=== PATIENT | female | born 1985 | race Caucasian/White ===

== ENCOUNTER → 2019-10-13 14:45 | Outpatient (CLI) | payer BC, SELFPAY ==
--- NOTE | ~2019-10-13 | US_ITS ---
EXAMINATION: US OB /maternal detail DATE: 10/13/2019 15:20 INDICATION: survey TECHNIQUE: Multiple obstetric sonographic images performed. FINDINGS: No prior studies for comparison. There is a single living fetus in breech presentation. The placenta is posterior without placenta pr evia measuring 2.4 cm to the cervix. Amniotic fluid volume is normal. cardiac activity and movement is noted with a heart rate of 138 beats per minute. The following anatomy was identified as normal: 4 chamber heart 3 vessel cord cord insertion kidneys urinary bladder stomach spine diaphragm ventricles cisterna magna cerebellum The following biometric data were obtained: BPD: 48mm corresponds to gestational age 20 weeks 4 days. Head circumference: 183 mm corresponds to gestational age 20 weeks 4 days. Abdominal circumference: 156 mm corresponds to gestational age 20 weeks 5 days. Femur length: 34 mm corresponds to gestational age 20 weeks 5 days. Head circumference to abdominal circumference ratio: 1.17 (normal range for expected gestational age is 1.06-1.25). Estimated weight: 372 grams +/- 56 grams using Hadlock method. IMPRESSION: 1: Single living intrauterine with an estimated gestational age of 20weeks 5days by current ultrasound measurements, with an EDC of 02/25/2020 in breech presentation. 2. Normal survey. Reviewed, dictated and finalized at location B. IMPRESSION: 1: Single living intrauterine with an estimated gestational age of 20 weeks 5days by current ultrasound measurements, with an EDC of 02/25/2020 in br eech presentation. 2. Normal survey.
== END ==
PROVIDERS: Visit Provider Obstetrics & Gynecology Gynecology
DX: Z36.9 Encounter for antenatal screening, unspecified (principal); Z3A.00 Weeks of gestation of pregnancy not specified
CPT/HCPCS: 76805

== ENCOUNTER 2020-01-25 17:43 | Outpatient (CLI) | payer BC, SELFPAY ==
[2020-01-25] VITALS (7 sets, daily range): BP systolic 112–124; BP diastolic 67–85; PULSE 68–88
[2020-01-25 18:46] LABS: Basophils Percent Auto 0.3 % (0.2-1.2); Eosinophils Absolute Auto 0.1 K/mm3 (0-0.3); Eosinophils Percent Auto 1.1 % (0-4.4); Hematocrit 34.9 % (37.0-47.0); Hemoglobin 12.1 g/dL (12.0-15.0); Immature Granulocyte Absolute 0.05 K/mm3 (0.00-0.031); Immature Granulocyte Percent A 0.5 % (0-0.5); Lymphocytes Absolute Auto 1.77 K/mm3 (0.9-3.2); Lymphocytes Percent Auto 16.3 % (18.3-44.2); Mean Corpuscular HGB Conc 34.7 g/dl (32-36); Mean Corpuscular Hemoglobin 29.8 pg (26-34); Mean Platelet Volume 9.8 fl (7.4-10.4); Monocytes Absolute Auto 0.9 K/mm3 (0.1-0.6); Monocytes Percent Auto 8.2 % (2.6-8.5); Neutrophils Percent Auto 73.6 % (45.5-73.1); Platelet Count Result 256 k/mm3 (150-375); Red Blood Count 4.06 M/mm3 (4.2-5.4); Red Cell Distribution Width 13.5 % (11.5-14.5); White Blood Count 10.9 K/mm3 (4.5-10.0)
[2020-01-25 18:51] LABS: Add Urine Microscopic? YES; Appearance Urine Clear (Clear); Bacteria Urine Trace /hpf; Bilirubin Urine Negative (Negative); Blood Urine Negative (Negative); Color Urine Colorless (Yellow); Glucose Urine UA Negative (Negative); Ketones Urine Negative (Negative); Leukocyte Esterase Ur 1+ LEU/UL (NEGATIVE); Nitrate Urine Negative (Negative); Protein Urine Negative (Negative); RBC Urine 0-2 /hpf (0-2); Squamous Epithelial Cell Urine Few /hpf (Few); Urobilinogen Urine Negative mg/dL (<2.0); WBC Urine 0-3 /hpf (0-3)
[2020-01-25 18:55] LABS: Creatinine Urine 12.1 mg/dL; Specific Grav Ur 1.003 (1.001-1.035); Total Protein Urine Random 13 mg/dL
[2020-01-25 19:01] LABS: Alanine Aminotransferase 12 U/L (4-35); Albumin Level 3.5 g/dL (3.5-5.1); Alkaline Phosphatase 135 U/L (38-126); Anion Gap 8 mmol/L (8-16); Aspartate Amino Transferase 18 U/L (14-36); Bilirubin,Total 0.4 mg/dL (0.2-1.3); Blood Urea Nitrogen 4 mg/dL (7-17); Calcium 9.1 mg/dL (8.4-10.2); Carbon Dioxide 25 mmol/L (22-30); Chloride 104 mmol/L (98-107); Estimated Glomerular Filt Rate > 60; Glucose 96 mg/dL (65-105); Potassium 3.6 mmol/L (3.4-5.0); Sodium 137 mmol/L (137-145); Uric Acid 3.6 mg/dL (2.5-7.5)
[2020-01-25] MEDS: TERBUTALINE SULFATE 1 MG/ML VIAL 0.25 MG SUB-Q (19:18)
== END 2020-01-25 20:30 | disposition home or self-care (01) ==
LOC: ANHOBOP 17:48 → ANHOBPP 17:49
PROVIDERS: Visit Provider Obstetrics & Gynecology Gynecology
DX: O13.9 Gestational [pregnancy-induced] hypertension without significant proteinuria, unspecified trimester (principal); Z3A.00 Weeks of gestation of pregnancy not specified
CPT/HCPCS: 36415; 80053; 81001; 82570; 84156; 84550; 85025; 87077; 87086; 87088; 99199; J3105

== ENCOUNTER 2020-02-17 15:35 | Inpatient (IN) | payer BC, SELFPAY ==
[2020-02-17] VITALS (57 sets, daily range): BP systolic 79–118; BP diastolic 54–98; PULSE 42–107; TEMP 36.6–36.9; O2SAT 83–100; BMI 32.3
[2020-02-17] MEDS: LACTATED RINGERS 1,000 ML 125 ML IV CONT (19:26)
[2020-02-17] MEDS: AMPICILLIN 2 GM/NS 100 ML 2 GM/100 ML BAG IVPB (19:27)
[2020-02-17 19:51] LABS: Basophils Percent Auto 0.3 % (0.2-1.2); Eosinophils Absolute Auto 0.1 K/mm3 (0-0.3); Eosinophils Percent Auto 1.1 % (0-4.4); Hematocrit 35.9 % (37.0-47.0); Hemoglobin 12.7 g/dL (12.0-15.0); Immature Granulocyte Absolute 0.07 K/mm3 (0.00-0.031); Immature Granulocyte Percent A 0.5 % (0-0.5); Lymphocytes Absolute Auto 1.92 K/mm3 (0.9-3.2); Lymphocytes Percent Auto 14.5 % (18.3-44.2); Mean Corpuscular HGB Conc 35.4 g/dl (32-36); Mean Corpuscular Hemoglobin 29.7 pg (26-34); Mean Corpuscular Volume 83.9 fl (80-100); Mean Platelet Volume 9.9 fl (7.4-10.4); Monocytes Absolute Auto 1.1 K/mm3 (0.1-0.6); Monocytes Percent Auto 8.3 % (2.6-8.5); Neutrophils Percent Auto 75.3 % (45.5-73.1); Platelet Count Result 296 k/mm3 (150-375); Red Blood Count 4.28 M/mm3 (4.2-5.4); Red Cell Distribution Width 13.4 % (11.5-14.5); White Blood Count 13.3 K/mm3 (4.5-10.0)
--- NOTE | 2020-02-17 20:33 | P.PNAN_ITS ---
Anes - Eval Pre Procedure Procedure: Labor epidural Date/Time: 02/17/20 20:33 Surgeon: Eleonora Preop Diagnosis: pain during labor Pre Op Diagnosis: Contractions Patient Data Age: 34 Gender: F Height: Weight: Last Vital Signs Pulse 82 02/17/20 20:20 BP 110/54 L 02/17/20 20:20 Pulse Ox 84 L 02/17/20 20:32 Allergies Allergy/AdvReac Type Severity Reaction Status Date / Time No Known Allergies Allergy Unknown Verified 01/30/20 12:34 Home Medications Medication Instructions Recorded Confirmed Type aspirin [Aspirin Low Dose] 81 mg PO DAILY 01/30/20 01/30/20 History ergocalciferol (vitamin D2) 1,250 mcg PO WEEKLY 01/30/20 01/30/20 History [Vitamin D2] ferrous sulfate 325 mg PO BID 01/30/20 01/30/20 History prenat.vits,james,[id number] 1 tablet PO DAILY 01/30/20 01/30/20 History [ #2] Laboratory Tests 02/17/20 02/17/20 19:27 19:27 WBC 13.3 K/mm3 H K/mm3 (4.5-10.0) RBC 4.28 M/mm3 M/mm3 (4.2-5.4) Hgb 12.7 g/dL g/dL (12.0-15.0) Hct 35.9 % L % (37.0-47.0) MCV 83.9 fl fl (80-100) MCH 29.7 pg pg (26-34) MCHC 35.4 g/dl g/dl (32-36) RDW 13.4 % % (11.5-14.5) Plt Count 296 k/mm3 k/mm3 (150-375) MPV 9.9 fl fl (7.4-10.4) Immature Gran % (Auto) 0.5 % % (0-0.5) Neut % (Auto) 75.3 % H % (45.5-73.1) Lymph % (Auto) 14.5 % L % (18.3-44.2) [place] % (Auto) 8.3 % % (2.6-8.5) Eos % (Auto) 1.1 % % (0-4.4) Baso % (Auto) 0.3 % % (0.2-1.2) Lymph # (Auto) 1.92 K/mm3 K/mm3 (0.9-3.2) [place] # (Auto) 1.1 K/mm3 H K/mm3 (0.1-0.6) Eos # (Auto) 0.1 K/mm3 K/mm3 (0-0.3) Baso # (Auto) 0.0 K/mm3 K/mm3 (0.0-0.1) Abs Immat Gran (auto) 0.07 K/mm3 H K/mm3 (0.00-0.031) Absolute Neuts (auto) 10.0 K/mm3 H K/mm3 (1.3-6.7) Absolute Nucleated RBC 0.0 K/mm3 K/mm3 (0.0-0.012) Nucleated RBC % 0.0 % % (0.0-0.2) RPR Pending Patient hx anesthesia problems: none Family hx anesthesia problems: none PMFSH Family History Family History (Updated 01/30/20 @ 12:39 by Gabby Ho RN) Mother Cancer Bipolar 1 disorder Father Prostate carcinoma Sibling Melanoma Psoriasis Social History Social History Substance use: never Spiritual care concerns: No Exam Day of Procedure 02/17/20 20:33
--- NOTE | 2020-02-17 20:59 | WPDOBADMIT ---
Obstetrics - Admit Note Admission Note: AROM meconium /-2 vertex. record reviewed. No pertinent additions to the history and/or any subsequent changes in the physical findings that are not consistent with the expected course of the were found. Additions to the history and/or subsequent changes in the physical findings follow. None.
--- NOTE | 2020-02-17 21:24 | LDADM ---
This patient, Georgette Robbins, was admitted to Labor/Delivery/Recovery 106 on 02/17/20 at 15:35. Plans for labor, pain management and were discussed with patient. Patient/family oriented to hospital policies and general routines including ID bracelet, bed and alarms, visiting hours, pain management, procedures, bathroom and other care routines, personal items, smoking policy, room service/diet and guest tray routines, security routines, and visiting hours. Patient/Family are encouraged to report perceived risks to care and to ask questions if they do not understand what they are told or what they should do. See OBIX for further documentation.
--- NOTE | 2020-02-17 23:05 | PM.OBPRVD ---
OB - Delivery Note Procedure Delivery date: 02/17/20 Procedure: Induction method: none Delivery augmentation: rupture of membranes Delivery monitor: external FHT and external uterine Route of delivery: Laceration Description: Perineal - 1st Degree Delivery repair: vicryl Specimen: Yes Estimated blood loss (mL): 100 Anesthesia type: Epidural Disposition: floor Baby Date of : 02/17/20 Time of : 20:18 Weeks of gestation at delivery: 38 gender: Male Weight (pounds): 7 Weight (ounces): 14 presentation: vertex position: Right Occiput Anterior Placenta delivery description: Spontaneous cord vessel description: 3 Vessels, Nuchal Cord, Loose and Clamped/Cut score one minute: 8 score five minutes: 9
[2020-02-17] MEDS: OXYTOCIN 30 UNITS/NS 500 ML 30 UNITS/500 ML BAG 125 UNITS IV CONT (23:26)
[2020-02-18] VITALS (11 sets, daily range): BP systolic 72–120; BP diastolic 49–78; PULSE 67–90; RESP 18; TEMP 36.4–37.4; O2SAT 99
[2020-02-18] MEDS: WITCH HAZEL 40 PADS 1 PAD TOPICAL (01:13)
[2020-02-18] MEDS: BENZOCAINE 20% AER SPR (*SP) 56 GM CAN 1 SPRAY TOPICAL (01:13)
--- NOTE | 2020-02-18 01:44 | OBPPTRN ---
Patient transferred to post room #281 via wheelchair with baby in bassinet. Support person present. Oriented to unit, room, information board, rooming in, admission packet and security measures. Patient verbalizes understanding.
[2020-02-18 05:02] LABS: Hematocrit 31.9 % (37.0-47.0); Hemoglobin 11.2 g/dL (12.0-15.0)
[2020-02-18] MEDS: MULTIVIT/MIN/PREN/FOL AC/IRON TABLET 1 TAB PO (07:15)
[2020-02-18] MEDS: IBUPROFEN 600 MG TABLET PO ×2 (07:15→15:11)
[2020-02-18] MEDS: DOCUSATE SODIUM 100 MG CAPSULE PO ×2 (07:15→15:11)
[2020-02-19] MEDS: MULTIVIT/MIN/PREN/FOL AC/IRON TABLET 1 TAB PO (08:21)
[2020-02-19] MEDS: DOCUSATE SODIUM 100 MG CAPSULE PO (08:21)
[2020-02-19] MEDS: IBUPROFEN 600 MG TABLET PO ×2 (08:21→16:58)
--- NOTE | 2020-02-19 09:56 | WPDANLDPN2 ---
Anes-Prog Note L&D Date/Time: 02/19/20 09:56 Comfortable throughout: labor and delivery Neuraxial method: epidural Epidural/Spinal procedure site: clean & non-tender Neuro status: Neuro function grossly intact. Cardiovascular status: normal Respiratory status: normal Airway patency: baseline Mental status: baseline Post-Op hydration status: normal Vital Signs: Last Vital Signs Temp 37.4 C 02/18/20 19:40 Pulse 67 02/18/20 19:40 Resp 18 02/18/20 19:40 BP 92/53 L 02/18/20 19:40 Pulse Ox 99 02/18/20 02:16 Pain score (VAS): 0 Post-procedural complaints: none Patient feedback: Patient satisfied with anesthetic care.
--- NOTE | 2020-02-19 11:28 | PM.OBPNVD ---
OB - PN: Subj Subjective Date/time seen: 02/19/20 11:28 S: doing well no complaints back pain improved OB - PN: Obj Data Labs CBC & Chem 7: 02/18/20 04:13 OB - PN A/P Assessment and Plan (1) (normal spontaneous vaginal delivery): Code(s): O80 - Encounter for full-term uncomplicated delivery Status: Acute Assessment and Plan: d/c home doing well plans vasectomy () Time Spent With Patient Time: Total time spent is greater than 50% in coordination of care (as documented) at patient's floor/unit and/or counseling patient: Exam : Other: fundus at umbilicus
[2020-02-19 15:25] VITALS: BP 123/89; PULSE 62; RESP 12; TEMP 36.2; O2SAT 100
[2020-02-19 20:12] VITALS: BP 98/66; PULSE 67; RESP 16; TEMP 37.1; O2SAT 99
--- NOTE | 2020-02-20 05:44 | PC.NURSE ---
02/19/[address] Rees called and orders this patient to be discharged and follow up in her office in 6 weeks. Patient will spend the night tonight as a no care bed patient. Baby is waiting for blood culture results.
[2020-02-20 07:02] LABS: Rapid Plasma Reagin Non-Reactive (NonReactive)
--- NOTE | 2020-02-20 08:15 | PC.NURSE ---
Consult with pt., mother states she is bottle feeding while in the hospital and plans to pump and bottle feeding EBM/formula once home. Mother does not wish to pump while here. Mother reports she has a double electric pump for home use. Reviewed instructions on breast pump care and usage, pumping schedule, nipple care, and collection and storage of breast milk. Encouraged [id number], breast massage and manual expression to stimulate supply. Pumping log provided and reviewed. Discussed correct flange size, placement and draw. Patient verbalizes a understanding of instructions. Mother is feeding as required and waking infant to feed if needed. Infant is currently meeting outcomes for weight, output, jaundice and feeding frequencies. Mother states she feels confident to continue current feeding plan at home. Reviewed transition to breast milk, signs of adequate intake, and engorgement/relief. Instructed to call ICP if intake/output less than required. Reviewed regular medications mother is taking. Information provided per Beatriz. Reviewed community resources on the [facility] website and in the Mom/Baby guide. Information on outpatient services provided. Mother has no further questions at this time.
[2020-02-22 09:23] VITALS: BP 117/81; PULSE 75; RESP 16; TEMP 36.7; O2SAT 98
--- NOTE | 2020-03-08 12:05 | PM.OBDSVD ---
DS: Admitting Diagnosis Admitting Diagnosis Admitting Diagnosis: Contractions OB - DS: Summary OB Procedures : None OB Procedures Intrapartum: Spontaneous Vag Delivery OB Procedures: : None Time Spent with Patient Time attestation: Total time spent providing and/or coordinating discharge services: DS: Data Data Completed and Pending Completed studies during hospitalization: Pending at discharge 02/17/20 22:53 Surgical [PTH] Routine Discharge Plan Discharge Attending physician on discharge: Simeon Rees Discharging Clinician: Simeon Rees Anticipated Discharge Date/Time: 02/19/20 20:00 Patient Disposition: Home, Self-Care Activity: may shower, may drive after 2 weeks, as tolerated, pelvic rest and other - see discharge instructions Diet: regular and heart healthy Discharge Instructions: Education: Mom and Baby Guide Given to: Mother Follow-Up: Call your delivering provider's office for an appointment to be seen in: 6 Weeks Mom and baby should come to the [facility] for the follow-up appointment. Appointment Date/Time: at What to expect at your follow-up visit: Physical Assessment Call [phone] if you are unable to keep your appointment time. BREAST CARE: * Wear a snug supportive bra. * For engorgement discomfort: Breast Feeding: * Apply warm moist washcloths * Express milk as needed to relieve engorgement * Wear loose clothing Bottle Feeding: * May apply ice packs * For sore nipples: * Identify correct latch-on * Apply warm moist washcloths before and after nursing * Air dry nipples after nursing * May apply Lansinoh cream to nipples EPISIOTOMY/PERINEAL CARE: * Until bleeding stops, use your bernardo bottle after urinating * Change your pad frequently throughout the day * You may take sitz baths several times a day (fill your bathtub with warm water and soak for 20 minutes.) Do NOT bathe in the water * No tub baths until seen by your physician - You may shower ACTIVITY: * Rest as much as possible. * Do not exercise or lift anything heavier than your baby (such as laundry or other children.) * Avoid stairs or driving as much as possible. * Do not put anything into the vagina. No douching, tampons, or sexual activity until seen by physician. NOTIFY PHYSICIAN IF YOU HAVE ANY QUESTIONS OR IF ANY OF THE FOLLOWING SYMPTOMS OCCUR: * If your episiotomy or incision becomes red, swollen, or more painful than what you have experienced in the hospital. * If your vaginal bleeding becomes foul smelling. * If your vaginal bleeding becomes more heavy than a period or if your bleeding changes from pink to bright red. However, you may pass an occasional walnut-sized clot once or twice for the first week . * If you experience a sharp, shooting pain in you calves. * If you discover a hard, reddened area on your breast or if you experience flu-like symptoms. DIET: * Eat regular, well-balanced meals. * Drink plenty of fluids daily. If , drink to thirst. Patient Instructions: Antibiotic Form Stand Alone Forms: General Discharge Information Follow-up/Referrals: Caren Crews MD [Physician] - Discharge Medications: Continued aspirin [Aspirin Low Dose] 81 mg Tablet,Delayed Release (Dr/Ec) 81 mg PO DAILY RF: 0 ergocalciferol (vitamin D2) [Vitamin D2] 1,250 mcg (50,000 unit) Capsule 1,250 mcg PO WEEKLY RF: 0 prenat.vits,james,[id number] Tablet 1 tablet PO DAILY RF: 0 Discontinued ferrous sulfate 325 mg (65 mg iron) Tablet 325 mg PO BID RF: 0 Date of admission: 02/17/20 15:35 Primary Care Provider: PHYSICIAN,PET TECHNOLOGIST Admitting Provider: Simeon Rees Attending physician on admission: Simeon Rees
== END 2020-02-19 21:00 | disposition home or self-care (01) | DRG 807 ==
LOC: ANHLDR 19:15 → ANHOB2 02-19 19:53 → ANHLDR 02-21 10:25 → ANHOB2 02-21 10:25
PROVIDERS: Admitting Provider Obstetrics & Gynecology; Visit Provider Obstetrics & Gynecology
DX: O99.824 Streptococcus B carrier state complicating childbirth (principal); Z37.0 Single live birth; Z3A.38 38 weeks gestation of pregnancy; O36.8330 Maternal care for abnormalities of the fetal heart rate or rhythm, third trimester, not applicable or unspecified; O77.0 Labor and delivery complicated by meconium in amniotic fluid; O69.81X0 Labor and delivery complicated by cord around neck, without compression, not applicable or unspecified; O70.0 First degree perineal laceration during delivery
CPT/HCPCS: 36415; 85014; 85018; 85025; 86592; 86850; 86900; 86901; 88307; A9270; J0290; J2590; J2795; J7120

== ENCOUNTER 2024-08-05 13:47 | Outpatient (CLI) | payer BC, SELFPAY ==
--- NOTE | ~2024-08-05 | US_ITS ---
EXAMINATION: US thyroid DATE: 08/05/2024 14:08 INDICATION: Thyroid nodule TECHNIQUE: Multiple ultrasound images of the thyroid were obtained. COMPARISON: None. FINDINGS: The right thyroid lobe measures 4.7 x 1.7 x 1.8 cm. Within the right lobe of the thyroid gland is a 10.4 x 3.6 x 5.4 mm nodule: Composition -mixed cystic and solid (1) Echogenicity - hypoechoic (2) Shape - wider than tall Margin - smooth Echogenic foci - none. TR3 Mildly suspicious Greater than or equal to 15 mm: Follow-up Greater than or equal to 25 mm: FNA Within the right lobe of the thyroid gland is a 9.1 x 8.3 x 8.8 mm nodule: Composition -cystic or almost completely cystic Echogenicity -anechoic Shape -taller than wide (3) Margin - smooth Echogenic foci - none. TR3 Mildly suspicious Greater than or equal to 15 mm: Follow-up Greater than or equal to 25 mm: FNA The left thyroid lobe measures 4.4 x 1.2 x 1.6 cm. Within the left lobe of the thyroid gland is a 2.9 x 2.8 x 3.6 mm nodule: Composition -mixed cystic and solid (1) Echogenicity -hyperechoic and isoechoic (1) Shape - wider than tall Margin - smooth Echogenic foci -macrocalcifications (1) = TR3 Mildly suspicious Greater than or equal to 15 mm: Follow-up Greater than or equal to 25 mm: FNA The isthmus measures 0.25cm in anterior to posterior dimension. There is otherwise normal echotexture and echogenicity throughout the remainder of the thyroid gland. No additional discrete nodules identified. Normal vascular flow is present. IMPRESSION: TR 3 nodules detected bilaterally, none meeting size criteria for FNA or follow-up. While follow-up is not recommended, it may be performed. Reviewed, dictated and finalized at location A. IMPRESSION: TR 3 nodules detected bilaterally, none meeting size criteria for FNA or follow -up. While follow-up is not recommended, it may be performed.
== END 2024-08-05 13:48 | disposition home or self-care (01) ==
LOC: MICIMG 13:48
PROVIDERS: PCP Nurse Practitioner; Visit Provider Nurse Practitioner
DX: E04.2 Nontoxic multinodular goiter (principal)
CPT/HCPCS: 76536